=== PATIENT | female | born 1945 | race Caucasian/White ===

== ENCOUNTER 2016-09-03 07:34 | Day surgery (SDC) | payer MEDICARE, BC ==
[~2016-09-03 07:34] MED LIST: RINGERS SOLUTION,LACTATED 1,000 ML IV PRN
--- OUTSIDE RECORDS SUMMARY | 2016-09-03 07:37 | XMS REPORT | Continuity of Care Document ---
:1945 Author Organization [facility] ([facility]) Address [place] [address] Phone [phone] Care Team Providers Name Role Phone Unavailable Primary Care Provider Unavailable Source Comments This disclosure is being made pursuant to the Care Everywhere program, applicable federal and state laws, and may not contain all informaitonavailable regarding this patient.[facility] ([facility]) Active Allergies and Adverse Reactions Not on File Current Medications Not on file Active Problems Not on file Social History Tobacco Use Types Packs/Day Years Used Date Never Assessed Plan of Care Health Maintenance Due Date Last Done Comments HCV Screening 1945 Hepatitis B Vaccine (1 of 3 - Primary Series) 1945 Tdap Vaccine 1956 Lipid Disorder Screening 12/09/1963 Td Vaccine 12/09/1963 Mammogram 1985 Colonoscopy 1995 Zoster Vaccine 2005 Osteoporosis Screening (DXA Bone Density) 2010 Pneumococcal Vaccine (1 of 2 - PCV13) 2010 Influenza Vaccine: Seasonal (#1) 01/28/2016 Results from Last 3 Months Not on file
[2016-09-03 12:06] VITALS: BP 118/60
--- NOTE | 2016-09-03 18:58 | OR ---
Operative Report - Dictated Report Narrative: OPERATIVE REPORT DATE OF OPERATION: 09/03/2016 PREOPERATIVE DIAGNOSIS: No recent dedicated colon studies. Family history of colon cancer. POSTOPERATIVE DIAGNOSIS: Normal colonoscopy OPERATION: Colonoscopy SURGEON: Kimberly Harris MD ANESTHESIA: PATRICIA Jaeger CRNA INDICATIONS FOR PROCEDURE: The patient is a 70-year-old female referred by Dr. Fuller. The patient's mother had colon cancer at age 85. The patient had a colonoscopy in 2010--no polyps were found. She currently has some pink on the toilet paper and occasional proctalgia. FINDINGS: Extremely capacious colon otherwise normal exam to the cecum NARRATIVE OF PROCEDURE: The patient was identified in the holding area, and prior to the administration of anesthetic, a multidisciplinary timeout was observed. With the patient in the left lateral position and after the administration of intravenous sedation, the perineum was inspected. There was no evidence of pilonidal disease or skin breakdown. The external appearance of the anus was normal. Sphincter tone was good. The flexible fiberoptic colonoscope was inserted into the rectum which was insufflated with air. The rectal mucosa and submucosal vascular pattern appeared normal, the prep was seen to be complete. The scope was advanced into the sigmoid colon where sharp angulation was encountered at approximately 35 cm. The scope was withdrawn and readvanced several times until the corner could be negotiated. The scope was then advanced through the remainder of the sigmoid colon, up the descending colon, and around the splenic flexure where an extremely capacious transverse colon was seen. Using standard reduction maneuvers and gentle external manual compression on the abdomen the scope was eventually successfully advanced across the transverse colon, and around the hepatic flexure. The entire ascending colon and cecum could be visualized however despite additional attempts, the scope could not be advanced further. The mucosa at this level appeared normal. The scope was then slowly withdrawn in a circular fashion so that all aspects of colonic mucosa were inspected. The colon was extremely capacious in character. The haustral architecture appeared effaced however there was no evidence of no evidence of external compression. The mucosa and submucosal vascular pattern appeared normal, specifically there was no gross evidence to suggest colitis or inflammatory bowel disease and no AV malformations were seen. No diverticulosis was demonstrated. No polyps were encountered. The scope was gradually withdrawn to the level of the rectum. As much insufflated air as possible was removed. The scope was withdrawn from the patient and the procedure terminated. The patient tolerated the anesthetic and procedure well without complication and was transferred back to the ambulatory surgery area awake and in stable condition. The patient remained stable throughout a period of postoperative observation. She denied abdominal discomfort, was able to tolerate by mouth intake, and was up without assistance. I shared the operative findings with the patient and she was given copies of the photographs which appear in the medical record. She was discharged home with instructions not to engage in hazardous activity today , but may resume normal activity tomorrow, and advance diet as tolerated. She is to continue those medications as listed in the history and physical exam. RECOMMENDATION: With no polyps on 2 previous exams, she could consider colon surveillance in 10 years depending upon findings and symptoms I recommend that she consider increasing the dose of MiraLAX to achieve more frequent stooling and adjust as necessary. Reviewed and electronically signed
== END 2016-09-03 07:35 | disposition home or self-care (01) ==
LOC: AMB 07:34
PROVIDERS: ATTEND Surgery
PROC: 0DJD8ZZ Inspection of Lower Intestinal Tract, Via Natural or Artificial Opening Endoscopic (ICD-10-PCS; principal; 2016-09-03 09:20)
DX: Z12.11 Encounter for screening for malignant neoplasm of colon (principal); I10 Essential (primary) hypertension; E03.9 Hypothyroidism, unspecified; F41.1 Generalized anxiety disorder; E53.8 Deficiency of other specified B group vitamins; E55.9 Vitamin D deficiency, unspecified; Z87.891 Personal history of nicotine dependence; Z68.28 Body mass index [BMI] 28.0-28.9, adult; Z80.0 Family history of malignant neoplasm of digestive organs

== ENCOUNTER 2017-06-03 18:34 | Inpatient (IN) | payer MEDICARE, BC ==
[2017-06-03] MEDS ORDERED: ONDANSETRON HCL/PF 2 MG/ML VIAL IV ONE (20:23)
[2017-06-03] MEDS ORDERED: NORMAL SALINE 1,000 ML IV ONE (20:24)
--- NOTE | 2017-06-03 20:30 | ERNOTE ---
Medical Problem HPI - General Chief Complaint: General Assessment Time Seen by Provider: 06/03/17 20:13 Source: patient Exam Limitations: no limitations - Immun/Allergies/Home Medications Immunizations: IMMUNIZATION HX Immunizations Up to Date Yes History of Influenza Vaccine Yes Hx Pneumococcal Vaccination Yes Allergies/Adverse Reactions: Allergies codeine Allergy (Mild, Verified 09/03/16 08:01) Hives codeine phosphate [From Robitussin A-C] Allergy (Mild, Verified 09/03/16 08:01) Hives guaifenesin [From Robitussin A-C] Allergy (Mild, Verified 09/03/16 08:01) Hives latex Allergy (Mild, Verified 06/03/17 19:18) Other adhesive tape Adverse Reaction (Mild, Verified 09/03/16 08:01) BLISTERS Home Medications: HOME MEDICATIONS Cholecalciferol (Vitamin D3) [Vitamin D3] 1,000 unit PO DAILY 06/03/17 [Last Taken Unknown] Cyanocobalamin [Vitamin B-12] 1,000 mcg PO 2XW 06/03/17 [Last Taken Unknown] Cyclosporine [Restasis] 1 - 2 drop EACHEYE DAILY 06/03/17 [Last Taken Unknown] Hydrochlorothiazide [Hydrodiuril] 25 mg PO DAILY 06/03/17 [Last Taken Unknown] Levothyroxine Sodium [Levo-T] 50 mcg PO DAILY 06/03/17 [Last Taken Unknown] Losartan Potassium [Cozaar] 100 mg PO DAILY 06/03/17 [Last Taken Unknown] Metoprolol Succinate [Toprol Xl] 100 mg PO DAILY 06/03/17 [Last Taken Unknown] Multivitamin [One Daily Multivitamin] 1 each PO DAILY 06/03/17 [Last Taken Unknown] Polyethylene Glycol 3350 [Miralax] 17 gm PO BID PRN 06/03/17 [Last Taken Unknown ] - History of Present History Narrative: Pt had surgery 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 She has a drain that will be removed by a local ENT tomorrow. she is feeling very weak and nauseous. Karoline was called in for her by the [facility] where the surgery was done. she took one about 6 hours ago but it didn't help much. Timing: getting worse Severity: moderate Modifying Factors - (Improves): Absent: medication Modifying Factors - (Worsens): Present: eating Review of Systems - Review of Systems Constitutional: Present: chills, fatigue. Absent: fever EYE: Present: no symptoms reported ENT: Present: See HPI Respiratory: Absent: shortness of breath Cardiology: Present: chest pain - bilateral lower lateral ribs Gastrointestinal/Abdominal: Present: nausea. Absent: vomiting, abdominal pain Genitourinary: Present: no symptoms reported Musculoskeletal: Present: back pain - lower ribs-pinching feeling with deep breath Skin: Present: no symptoms reported Neurological: Present: no symptoms reported Endocrine: Present: no symptoms reported Hematologic/Lymphatic: Present: no symptoms reported Psych: Present: no symptoms reported - Patient's Past Medical History Patient History - Medical: Anxiety, Depression, Hypothyroidism, UTI'S, Other Patient History - Cardiac/Respiratory: Hypertension Patient History - Cancer: No Hx of Cancer Patient History - Surgical Procedures: Appendectomy, Colonoscopy, Hysterectomy, Urology Patient History - Other: None - Family History Mother Family History - Medical: , No pertinent hx Family History - Cardiac/Respiratory: No pertinent hx Family History - Cancer: Rectal Father Family History - Medical: , Alcohol Abuse, Other Family History - Cardiac/Respiratory: No pertinent hx Family History - Cancer: No pertinent family hx - Social History Living Situations: home Abuse History: No History of abuse Psych History: Hx of Anxiety, Hx of Depression Smoking Status: Former smoker Alcohol Use: none Drug Use: none - Immunizations Immunizations Up to Date: Yes Hx Pneumococcal Vaccination: Yes History of Influenza Vaccine: Yes Physical Exam - Physical Exam General Appearance: Present: wd/wn, lethargic Head Exam: Present: normal inspection, no evidence of injury Neck: Present: other - bulb drain from right carotid area. minimal serosanguenous fluid in bulb Respiratory: Present: no respiratory distress, normal breath sounds, no accessory muscle use, lungs clear Cardiovascular/Chest: Present: regular rate, rhythm, no murmur, normal peripheral pulses Gastrointestinal/Abdominal: Present: normal bowel sounds, soft, tenderness - b/ l UQ right greater than left. Absent: distended, guarding, rebound Back Exam: Present: no CVA tenderness Extremity Exam: Present: normal inspection Neurological Exam: Present: alert, oriented, no motor/sensory deficits Skin Exam: Present: normal color, warm/dry - surgical wound right neck in good approximation, no erythema or drainage outside of the bulb drain. Appropriate bruising around the wound Lymphatic Exam: Present: no adenopathy ED Progress - Results and Orders Patient's Lab Results:: I have reviewed the patient's lab results. Results and Orders: Laboratory Tests 06/03/17 06/03/17 06/03/17 20:49 20:52 20:52 WBC 10.1 Hgb 14.4 Hct 39.6 Plt Count 301 Sodium 121 L Potassium 3.0 L D Chloride 84 L Carbon Dioxide 28.5 BUN 13 Creatinine 0.82 Est GFR (Non-Af Amer) 73 Random Glucose 124 H Calcium 9.1 Total Bilirubin 0.8 AST 22 ALT 26 Alkaline Phosphatase 85 Total Protein 7.8 Albumin 4.1 Amylase 46 Lipase 90 Urine Color Yellow Urine Appearance Clear Urine pH 7.5 Ur Specific [place] 1.010 Urine Protein 30 H Urine Glucose (UA) Negative Urine Ketones 5 Urine Blood 250 H Urine Nitrate Negative Urine Bilirubin Negative Prot Sulfosalicylic Acd Negative Urine Urobilinogen Normal Ur Leukocyte Esterase Negative Urine RBC 10-25 H Urine WBC None seen Ur Epithelial Cells None seen Urine Bacteria Trace Urine Culture Comments No culture indicated 06/03/17 21:51 WBC Hgb Hct Plt Count Sodium 123 L Potassium 3.0 L Chloride 87 L Carbon Dioxide BUN Creatinine Est GFR (Non-Af Amer) Random Glucose Calcium Total Bilirubin AST ALT Alkaline Phosphatase Total Protein Albumin Amylase Lipase Urine Color Urine Appearance Urine pH Ur Specific [place] Urine Protein Urine Glucose (UA) Urine Ketones Urine Blood Urine Nitrate Urine Bilirubin Prot Sulfosalicylic Acd Urine Urobilinogen Ur Leukocyte Esterase Urine RBC Urine WBC Ur Epithelial Cells Urine Bacteria Urine Culture Comments - Vital Signs Patient's Vital Signs:: I have reviewed the patient's vital signs. Vital Signs: Vital Signs 06/03/17 19:09 Temperature 37.1 C Pulse Rate 61 Respiratory 16 Rate Blood Pressure 147/86 O2 Sat by Pulse 96 Oximetry - X-Ray X-Ray #1 X-Ray: abdomen Interpretation: Reviewed by me X-ray Comments: IMPRESSION: Nonspecific bowel gas pattern with air-fluid levels within nondilated small and large bowel segments throughout. More compatible with potential underlying ileus, potentially due to enteritis or colitis rather than mechanical intestinal obstruction. Additional comments are as above. Electronically signed by Perfecto Veras M.D.. X-Ray #2 X-Ray: chest Interpretation: Reviewed by me X-ray Comments: IMPRESSION: 1. No focal acute cardiopulmonary finding. 2. Additional comments are as above. Electronically signed by Perfecto Veras M.D.. - Progress/Reassessment Chief Complaint: General Assessment Progress Note-Subjective: 06/03/17 23:13 [facility] admit. Departure Clinical Impression: Hyponatremia, Hypochloremia, Hypokalemia - Departure Disposition: [facility] Condition: Fair
[2017-06-03] MEDS ORDERED: ONDANSETRON HCL/PF 2 MG/ML VIAL ONE (20:50)
[2017-06-03 20:53] LABS: Hematocrit 39.6 % (37.0-47.0); Hemoglobin 14.4 gm/dL (12.5-16.0); Mean Cell Volume 83.9 fl (78-100); Mean Corpuscular Hemoglobin 30.5 pg (27-31); Mean Corpuscular Hgb Conc 36.4 g/dl (32-36); Mean Platelet Volume 8.7 fl (6.0-9.5); Neutrophil # 6.9 K/mm3 (1.3-6.0); Platelet Count 301 K/mm3 (150-450); Red Blood Count 4.72 M/mm3 (4.2-5.4); Red Cell Distribution Width 11.8 % (11.5-14.0); White Blood Count 10.1 K/mm3 (4.0-10.5)
[2017-06-03 21:14] LABS: Urine Bilirubin Negative (NEGATIVE); Urine Blood 250 /ul (NEGATIVE); Urine Ketone 5 mg/dL (NEGATIVE); Urine Nitrite Negative (NEGATIVE); Urine Protein 30 mg/dL (NEGATIVE); Urine Urobilinogen Normal (NORMAL); Urine pH 7.5 pH (5.0-7.0)
[2017-06-03 21:15] LABS: Albumin * 4.1 gm/dl (3.4-5.0); Anion Gap 11.5 mmol/L (6.8-13.8); BUN/Creatinine Ratio 15.9 (9.0-21.6); Bilirubin, Total 0.8 mg/dL (0.0-1.1); Ca. Corrected For Albumin 8.7 mg/dL (8.4-10.2); Calcium * 9.1 mg/dL (7.9-10.9); Carbon Dioxide 28.5 mmol/L (24-32.6); Total Protein 7.8 gm/dL (6.2-8.2)
[2017-06-03 21:25] LABS: Urine Appearance Clear; Urine Color Yellow; Urine WBC None Seen /hpf (0-5)
[2017-06-03 21:26] LABS: Urine Bacteria TRACE
[2017-06-03 22:12] LABS: Anion Gap 12.6 mmol/L (6.8-13.8); Carbon Dioxide 26.4 mmol/L (24-32.6)
[2017-06-04] MEDS ORDERED: CYANOCOBALAMIN 1,000 MCG TABLET PO SCH (00:30)
[2017-06-04] MEDS ORDERED: POTASSIUM CHLORIDE 40 MEQ in NORMAL SALINE 1,000 ML IV PRN (01:48)
[2017-06-04] MEDS: CHOLECALCIFEROL 1,000 UNIT CAPSULE PO SCH ×2 (02:21→08:28)
[2017-06-04] MEDS: POLYETHYLENE GLYCOL 3350 119 GM BTL PO SCH ×3 (02:21→20:33)
--- NOTE | 2017-06-04 02:21 | HP ---
Chief Complaint - Chief Complaint Date of Service: 06/04/17 Time of Service: 00:36 Chief Complaint: weakness History of Present Illness: 71 years old female adm to the hospital with reports of weakness. PMH significant for IBS, Right carotid tumor,hypertension, hypothyriodism and constipation. 06/01/17 S/P Resection of right carotid tumor. Pt stated since her discharged home post procedure,she has been feeling very weak. Today she felt worst as her weakness was accompanied with nausea. She denies dizziness, fever, chills,shortness of breath, chest pain, palpitation or headache. In ER hyponatremic with Na+ level 121--->123 after 1L IVF. Home medication include hydrochlorothiazide, will hold medication and monitor BMP. Plan of care discussed with pt she verbalized understanding and agrees. - Patient's Past Medical History Patient History - Medical: Anxiety, Depression, Hypothyroidism, UTI'S, Other - constipation, Patient History - Cardiac/Respiratory: Hypertension, Other - carotid tumor Patient History - Cancer: No Hx of Cancer Patient History - Surgical Procedures: Appendectomy, Colonoscopy, Hysterectomy, Urology Patient History - Other: None - Family History Mother Family History - Medical: , No pertinent hx Family History - Cardiac/Respiratory: No pertinent hx Family History - Cancer: Rectal Father Family History - Medical: , Alcohol Abuse, Other Family History - Cardiac/Respiratory: No pertinent hx Family History - Cancer: No pertinent family hx - Social History Living Situations: home Abuse History: No History of abuse Psych History: Hx of Anxiety, Hx of Depression Does anyone smoke in the home?: No Smoking Status: Former smoker Have you smoked in the past 12 months: No Do you dip or chew tobacco: No Smoking Stop Date: 06/29/85 Initiate information on Smoking Cessation: No Alcohol Use: none Drug Use: none - Immunizations Immunizations Up to Date: Yes Hx Pneumococcal Vaccination: Yes History of Influenza Vaccine: Yes Review Of Systems (GEN) - Review of Systems Generalized/Overall Review: Present: Weakness, Fatigue EENTM: Present: No Symptoms Reported Respiratory: Present: No Symptoms Reported Cardiac: Present: No Symptoms Reported Abdominal: Present: No Symptoms Reported Genitourinary: Present: No Symptoms Reported Musculoskeletal: Present: No Symptoms Reported Neurological: Present: No Symptoms Reported Skin: Present: Other - resection of carotid tumor right side necck Immunizations: IMMUNIZATION HX Immunizations Up to Date Yes History of Influenza Vaccine Yes Hx Pneumococcal Vaccination Yes Allergies/Adverse Reactions: Allergies Allergy/AdvReac Type Severity Reaction Status Date / Time codeine Allergy Mild Hives Verified 09/03/16 08:01 codeine phosphate Allergy Mild Hives Verified 09/03/16 08:01 [From Robitussin A-C] guaifenesin Allergy Mild Hives Verified 09/03/16 08:01 [From Robitussin A-C] latex Allergy Mild Other Verified 06/03/17 19:18 adhesive tape AdvReac Mild BLISTERS Verified 09/03/16 08:01 Home Medications: HOME MEDICATIONS Cholecalciferol (Vitamin D3) [Vitamin D3] 1,000 unit PO DAILY 06/03/17 [Last Taken Unknown] Cyanocobalamin [Vitamin B-12] 1,000 mcg PO 2XW 06/03/17 [Last Taken Unknown] Cyclosporine [Restasis] 1 - 2 drop EACHEYE DAILY 06/03/17 [Last Taken Unknown] Hydrochlorothiazide [Hydrodiuril] 25 mg PO DAILY 06/03/17 [Last Taken Unknown] Levothyroxine Sodium [Levo-T] 50 mcg PO DAILY 06/03/17 [Last Taken Unknown] Losartan Potassium [Cozaar] 100 mg PO DAILY 06/03/17 [Last Taken Unknown] Metoprolol Succinate [Toprol Xl] 100 mg PO DAILY 06/03/17 [Last Taken Unknown] Multivitamin [One Daily Multivitamin] 1 each PO DAILY 06/03/17 [Last Taken Unknown] Polyethylene Glycol 3350 [Miralax] 17 gm PO BID 06/03/17 [Last Taken Unknown] Exam - Exam Vital Signs: Vital Signs - Last Taken Temp 36.2 C L 06/03/17 23:53 Pulse 96 06/03/17 23:53 Resp 16 06/03/17 23:53 BP 175/74 06/03/17 23:53 Pulse Ox 96 06/03/17 23:53 Constitutional: Present: Alert, Oriented x3, Cooperative, No distress, Middle aged ENT Exam: Present: other - S/P right carotid tumor revmoved with MOUNIKA drain intact Eye Exam: bilateral eye: normal inspection Neck: Present: full range of motion, trachea midline, other - s/p removal right carotid body tumor Back Exam: Present: normal inspection Breasts: Present: Exam deferred Respiratory: Present: chest non-tender, lungs clear, normal breath sounds, no respiratory distress Cardiovascular/Chest: Present: normal peripheral pulses, regular rate, rhythm Peripheral Pulses: dorsalis-pedis (R): 3+, dorsalis-pedis (L): 3+ Abdomen: Present: Normal bowel sounds, soft, nontender, nondistended, no rebound tenderness /Rectal: Present: Exam deferred Extremity: Present: normal range of motion, non-tender, normal inspection, no calf tenderness Skin Exam: Present: no cyanosis, other - rightside of neck with erythema Neurologic: Present: oriented x 3 Appearance: Present: appropriate appearance Eye contact: Present: cooperative, good eye contact Thoughts: Present: normal thought pattern Diagnostic Studies: Laboratory Results WBC 10.1 K/mm3 (4.0-10.5) 06/03/17 20:52 RBC 4.72 M/mm3 (4.2-5.4) 06/03/17 20:52 Hgb 14.4 gm/dL (12.5-16.0) 06/03/17 20:52 Hct 39.6 % (37.0-47.0) 06/03/17 20:52 MCV 83.9 fl (78-100) 06/03/17 20:52 MCH 30.5 pg (27-31) 06/03/17 20:52 MCHC 36.4 g/dl (32-36) H 06/03/17 20:52 RDW 11.8 % (11.5-14.0) 06/03/17 20:52 Plt Count 301 K/mm3 (150-450) 06/03/17 20:52 MPV 8.7 fl (6.0-9.5) 06/03/17 20:52 Immature Gran % (Auto) 0.40 % (0.001-0.429) 06/03/17 20:52 Immature Gran # (Auto) 0.04 K/mm3 (0.000-0.0310) H 06/03/17 20:52 Neutrophils % 68.0 % (42-75.0) 06/03/17 20:52 Lymphocytes % 21.4 % (20-51) 06/03/17 20:52 Monocytes % 9.6 % (0.0-9) H 06/03/17 20:52 Eosinophils % 0.3 % (0.0-3.0) 06/03/17 20:52 Basophils % 0.3 % (0.0-1.0) 06/03/17 20:52 Nucleated RBC % 0.0 k/mm3 (0-1) 06/03/17 20:52 Neutrophils # 6.9 K/mm3 (1.3-6.0) H 06/03/17 20:52 Lymphocytes # 2.2 k/mm3 (1.5-3.5) 06/03/17 20:52 Monocytes # 1.0 k/mm3 (0.0-1.0) 06/03/17 20:52 Eosinophils # 0.0 k/mm3 (0.0-0.7) 06/03/17 20:52 Absolute Basophils 0.0 k/mm3 (0.0-0.1) 06/03/17 20:52 Sodium 123 mmol/L (132-142) L 06/03/17 21:51 Plasma Sodium 121 mmol/L (130-142) L 06/03/17 20:52 Potassium 3.0 mmol/L (3.4-4.6) L 06/03/17 21:51 Chloride 87 mmol/L (97-106) L 06/03/17 21:51 Carbon Dioxide 26.4 mmol/L (24-32.6) 06/03/17 21:51 Anion Gap 12.6 mmol/L (6.8-13.8) 06/03/17 21:51 BUN 13 mg/dL (3-23) 06/03/17 20:52 Creatinine 0.82 mg/dL (0.4-1.4) 06/03/17 20:52 Est GFR (Non-Af Amer) 73 mL/min (60-130) 06/03/17 20:52 BUN/Creatinine Ratio 15.9 (9.0-21.6) 06/03/17 20:52 Random Glucose 124 mg/dL (70-110) H 06/03/17 20:52 Calcium 9.1 mg/dL (7.9-10.9) 06/03/17 20:52 Calcium Adj for Albumin 8.7 mg/dL (8.4-10.2) 06/03/17 20:52 Total Bilirubin 0.8 mg/dL (0.0-1.1) 06/03/17 20:52 AST 22 U/L (0-48) 06/03/17 20:52 ALT 26 U/L (19-67) 06/03/17 20:52 Alkaline Phosphatase 85 U/L (50-170) 06/03/17 20:52 Total Protein 7.8 gm/dL (6.2-8.2) 06/03/17 20:52 Albumin 4.1 gm/dl (3.4-5.0) 06/03/17 20:52 Amylase 46 U/L (25-115) 06/03/17 20:52 Lipase 90 U/L (73-393) 06/03/17 20:52 Urine Color Yellow 06/03/17 20:49 Urine Appearance Clear 06/03/17 20:49 Urine pH 7.5 pH (5.0-7.0) 06/03/17 20:49 Ur Specific [place] 1.010 SP.GR. (1.005-1.010) 06/03/17 20:49 Urine Protein 30 mg/dL (NEGATIVE) H 06/03/17 20:49 Urine Glucose (UA) Negative mg/dL (NEGATIVE) 06/03/17 20:49 Urine Ketones 5 mg/dL (NEGATIVE) 06/03/17 20:49 Urine Blood 250 /ul (NEGATIVE) H 06/03/17 20:49 Urine Nitrate Negative (NEGATIVE) 06/03/17 20:49 Urine Bilirubin Negative mg/dl (NEGATIVE) 06/03/17 20:49 Prot Sulfosalicylic Acd Negative mg/dL (0) 06/03/17 20:49 Urine Urobilinogen Normal EU/dl (NORMAL) 06/03/17 20:49 Ur Leukocyte Esterase Negative /ul (NEGATIVE) 06/03/17 20:49 Urine RBC 10-25 /hpf (0-5) H 06/03/17 20:49 Urine WBC None seen /hpf (0-5) 06/03/17 20:49 Ur Epithelial Cells None seen /hpf (0-5) 06/03/17 20:49 Urine Bacteria Trace (NONE) 06/03/17 20:49 Urine Culture Comments No culture indicated 06/03/17 20:49 Assessment/Plan - Narrative Narrative: Hyponatremia :likely due to HCTZ use 09/2016 On previous adm Na+ level was > 130 will hold HCTZ for now Monitor BMP Gentle hydration with IVF and avoid excess free fluid. Hypokalemia: secondary to diuretic use Supplemented, by continue with IVF Hypertension On adm BP 177/78 May resume home medication except HTCZ Monitor Vs Q shift. 06/01/17 s/p right resection carotid tumor. MOUNIKA drain intact with serosang drainage. Surgical site with moderate erythema Plan for Local ENT to pull drainage today Code status: Full VTE ppx: SCD GI ppx: Pepcid Time 45 minutes outside facility records reviewed and case discussed with Dr vasques - Assessment/Plan (1) Hypertension Problem: Chronic Qualifiers: Hypertension type: essential hypertension Qualified Code(s): I10 - Essential (primary) hypertension (2) Hypothyroidism Problem: Chronic (3) Constipation Problem: Chronic (4) Hypochloremia Problem: Acute (5) Hypokalemia Problem: Acute (6) Hyponatremia Problem: Acute
[2017-06-04] MEDS: POTASSIUM CHLORIDE 40 MEQ in NORMAL SALINE 1,000 ML IV SCH ×3 (03:56→14:15)
[2017-06-04 06:21] LABS: Anion Gap 8.7 mmol/L (6.8-13.8); BUN/Creatinine Ratio 14.5 (9.0-21.6); Calcium * 8.7 mg/dL (7.9-10.9); Carbon Dioxide 30.2 mmol/L (24-32.6); Estimated Creat Clear 56.2; Potassium 2.9 mmol/L (3.4-4.6)
[2017-06-04] MEDS ORDERED: POTASSIUM CHLORIDE 20 MEQ TABLET.SA PO ONE (06:28)
--- NOTE | 2017-06-04 06:58 | PN ---
Subjective - Date and Time Seen Date: 06/04/17 Time: 06:58 Subjective Narrative: Patient was seen today AOX3 no acute distress, she denies fever, chills, shortness of breath, dizziness and stated she still feel very weak. pt anticipate been seen by ENT today and having MOUNIKA drain remove. Objective - Review of Systems Generalized/Overall Review: Reports: No Symptoms Reported EENTM: Reports: Other - Mounika drain s/p right carotid tumor resection Respiratory: Reports: No Symptoms Reported Cardiac: Reports: No Symptoms Reported Abdominal: Reports: No Symptoms Reported Genitourinary Symptoms: Reports: No Symptoms Reported Musculoskeletal Complaints: Reports: No Symptoms Reported Neurological: Reports: No Symptoms Reported Skin: Reports: No Symptoms Reported Endocrine: Reports: No Symptoms Reported - Vitals Vitals: Last Vital Signs Temp 36.2 C L 06/04/17 02:29 Pulse 61 06/04/17 02:29 Resp 18 06/04/17 02:29 BP 177/78 06/04/17 02:29 Pulse Ox 97 06/04/17 02:29 - Abnormal Lab Findings Abnormal Lab Findings: Abnormal Lab Results 06/04/17 Range/Units 06:01 Sodium 124 L (132-142) mmol/L Plasma Sodium 124 L (130-142) mmol/L Potassium 2.9 L (3.4-4.6) mmol/L Chloride 88 L (97-106) mmol/L - Exam Constitutional: Present: Alert, Oriented x3, Cooperative, No distress ENT Exam: Present: hearing grossly normal, other - MOUNIKA drainage s/p right carotid tumor resection Neck: Present: full range of motion, other - Erythema surgical site,MOUNIKA drainage s/p right carotid tumor resection Respiratory: Present: chest non-tender, lungs clear, normal breath sounds, no respiratory distress Cardiovascular/Chest: Present: normal peripheral pulses, regular rate, rhythm, no chest tenderness, no edema Abdomen: Present: Normal bowel sounds, soft, nontender /Rectal: Present: Exam deferred Extremity: Present: normal range of motion, non-tender, normal inspection, no calf tenderness, normal capillary refill Skin Exam: Present: warm/dry Neurologic: Present: oriented x 3 Appearance: Present: appropriate appearance Eye contact: Present: cooperative Thoughts: Present: normal thought pattern Assessment/Plan Plan Narrative: Hyponatremia : gradually trending up On adm Na+ 120--->121---->124 Continue to HCTZ Monitor BMP Q6hr Gentle hydration with IVF and avoid excess free fluid. Hypokalemia: On adm K+3.0--->2.9 Supplemented K-dur 40meq x1 Continue IVF Hypertension On adm BP 177/78----> May resume home medication except HTCZ Monitor Vs Q shift. 06/01/17 s/p right resection carotid tumor. MOUNIKA drain intact with minimal serosang drainage. Surgical site with moderate erythema Pt have appt with Dr elizabeth 11:45 today, plan to have Dr Elizabeth see pt while at the hospital Code status: Full VTE ppx: SCD GI ppx: Pepcid Time 15 minutes and case discussed with Dr vasques - Problems/Diagnosis (1) Hypertension Problem: Chronic Qualifiers: Hypertension type: essential hypertension Qualified Code(s): I10 - Essential (primary) hypertension (2) Hypothyroidism Problem: Chronic (3) Constipation Problem: Chronic (4) Hypochloremia Problem: Acute (5) Hypokalemia Problem: Acute (6) Hyponatremia Problem: Acute
[2017-06-04] MEDS: LEVOTHYROXINE SODIUM 50 MCG TABLET PO SCH (07:18)
[2017-06-04] MEDS: LOSARTAN POTASSIUM 50 MG TABLET PO SCH (08:26)
[2017-06-04] MEDS: METOPROLOL SUCCINATE 100 MG TABLET.SA PO SCH (08:27)
[2017-06-04] MEDS: MULTIVITAMINS 1 CAP CAPSULE PO SCH (08:27)
[2017-06-04] MEDS ORDERED: ENOXAPARIN SODIUM 40 MG/0.4 ML SYRG SC SCH (10:30)
[2017-06-04] MEDS: POTASSIUM CHLORIDE 20 MEQ TABLET.SA PO SCH ×2 (12:10→17:05)
[2017-06-04 12:19] LABS: Anion Gap 8.9 mmol/L (6.8-13.8); BUN/Creatinine Ratio 13.7 (9.0-21.6); Calcium * 8.7 mg/dL (7.9-10.9); Carbon Dioxide 28.8 mmol/L (24-32.6); Estimated Creat Clear 58.5; Potassium 3.7 mmol/L (3.4-4.6)
[2017-06-04] MEDS: MAGNESIUM OXIDE 400 MG TABLET PO SCH ×2 (13:19→17:05)
[2017-06-04 17:34] LABS: Anion Gap 12.1 mmol/L (6.8-13.8); BUN/Creatinine Ratio 13.2 (9.0-21.6); Calcium * 8.6 mg/dL (7.9-10.9); Carbon Dioxide 24.6 mmol/L (24-32.6); Estimated Creat Clear 62.8; Potassium 4.7 mmol/L (3.4-4.6)
[2017-06-05 06:11] LABS: Anion Gap 9.5 mmol/L (6.8-13.8); BUN/Creatinine Ratio 12.3 (9.0-21.6); Calcium * 8.7 mg/dL (7.9-10.9); Estimated Creat Clear 52.7; Potassium 4.5 mmol/L (3.4-4.6)
[2017-06-05] MEDS: LEVOTHYROXINE SODIUM 50 MCG TABLET PO SCH (07:10)
[2017-06-05] MEDS: MAGNESIUM OXIDE 400 MG TABLET PO SCH (08:48)
[2017-06-05] MEDS: METOPROLOL SUCCINATE 100 MG TABLET.SA PO SCH (08:48)
[2017-06-05] MEDS: MULTIVITAMINS 1 CAP CAPSULE PO SCH (08:48)
[2017-06-05] MEDS: CHOLECALCIFEROL 1,000 UNIT CAPSULE PO SCH (08:49)
[2017-06-05] MEDS: POLYETHYLENE GLYCOL 3350 119 GM BTL PO SCH (08:49)
[2017-06-05] MEDS: LOSARTAN POTASSIUM 50 MG TABLET PO SCH (08:49)
--- NOTE | 2017-06-05 09:04 | DS ---
Description of Stay: Christie Krishna, 71 years old female, adm to the hospital on 06/04/2017 with reports of weakness. PMH significant for IBS, Right carotid tumor,hypertension, hypothyriodism and constipation. 06/01/17 S/P Resection of right carotid bulb tumor. Pt stated since her discharged home post procedure,she has been feeling very weak. On the day of admission, she felt worst as her weakness was accompanied with nausea. She denied dizziness, fever, chills,shortness of breath , chest pain, palpitation or headache. In ER hyponatremic with Na+ level 121--- >123 after 1L IVF. Home medication include hydrochlorothiazide, which was held on admission. She also complained of leg and feet cramps. She was started on IVF with KCl as her Na, K, Cl were all low. Today her electrolytes are all back to normal. She is stable to be discharged to home. Will hold her HCTZ for now and start Amlipidine 5 mg PO QD with her Losartan and Metoprolol. Follow up with her PCP in 1 week. Procedures Performed: none Discharge Disposition: Home self care Disposition: Home self-care Condition: Stable Discharge Activity: Activity as tolerated Discharge Diet: Low salt Referrals: Jennifer Fuller MD [Primary Care Provider] - Problem Oriented Discharge Instructions to Patient/Family: Hyponatremia, Easy- to-Read, Hypertension, [id number] Additional Patient Instructions (free text): Follow up with Dr. Fuller on 06/12/17 at 2:00pm. Prescriptions (Any new or edited meds): Amlodipine Besylate 5 mg PO DAILY #30 tab Complete Home Medications List: Complete Home Medication List: Cholecalciferol (Vitamin D3) [Vitamin D3] 1,000 unit PO DAILY 06/03/17 Cyanocobalamin [Vitamin B-12] 1,000 mcg PO 2XW 06/03/17 Cyclosporine [Restasis] 1 - 2 drop EACHEYE DAILY 06/03/17 Levothyroxine Sodium [Levo-T] 50 mcg PO DAILY 06/03/17 Losartan Potassium [Cozaar] 100 mg PO DAILY 06/03/17 Metoprolol Succinate [Toprol Xl] 100 mg PO DAILY 06/03/17 Multivitamin [One Daily Multivitamin] 1 each PO DAILY 06/03/17 Polyethylene Glycol 3350 [Miralax] 17 gm PO BID 06/03/17 Amlodipine Besylate 5 mg PO DAILY #30 tab 06/05/17 Amb Orders for Discharge: Basic Metabolic Panel Time Frame: 06/12/17, Location: Determined By Patient
[2017-06-05 10:50] VITALS: BP 162/65
== END 2017-06-05 11:12 | disposition home or self-care (01) | DRG 641 ==
LOC: ER 18:34 → MS 23:18 → UNDOADMOB 23:18 → MS 23:28 → OBSVTOIN 06-04 09:04
PROVIDERS: ADMIT Nurse Practitioner; ATTEND Internal Medicine
PROC: 0WP Anatomical Regions, General, Removal (ICD-10-PCS; principal; 2017-06-04)
DX: E87.1 Hypo-osmolality and hyponatremia (principal); E86.1 Hypovolemia; E87.6 Hypokalemia; E87.8 Other disorders of electrolyte and fluid balance, not elsewhere classified; T50.2X5A Adverse effect of carbonic-anhydrase inhibitors, benzothiadiazides and other diuretics, initial encounter; K59.09 Other constipation; E03.9 Hypothyroidism, unspecified; I10 Essential (primary) hypertension; Y92.009 Unspecified place in unspecified non-institutional (private) residence as the place of occurrence of the external cause; Z98.890 Other specified postprocedural states